=== PATIENT | male | born 1985 | race Caucasian/White ===

== ENCOUNTER 2024-05-21 21:38 | Emergency (ER) | payer OTHER ==
[~2024-05-21] VITALS: Ht 175.3 cm; Wt 100.7 kg
[2024-05-21 21:43] VITALS: O2SAT 96
[2024-05-21] MEDS ORDERED: LIDOCAINE VISCUS 2% 15 ML UDC ONE (21:56)
[2024-05-21] MEDS: LIDOCAINE VISCUS 2% 15 ML UDC MM ONE (22:05)
[2024-05-21] MEDS ORDERED: DEXAMETHASONE SOD PHOSPHATE 4 MG INJ ONE (22:44)
[2024-05-21] MEDS ORDERED: DEXAMETHASONE SOD PHOSPHATE 10 MG INJ ONE (22:45)
[2024-05-21] MEDS ORDERED: OXYCODONE/APAP 5-325 MG TABLET ONE ×2 (22:45→22:50)
[2024-05-21] MEDS ORDERED: OXYC-133 PO (22:45)
[2024-05-21] MEDS: OXYCODONE/APAP 5-325 MG TABLET PO ONE ×2 (22:50)
[2024-05-21] MEDS: DEXAMETHASONE SOD PHOSPHATE 4 MG INJ IM ONE (22:50)
[2024-05-21] MEDS ORDERED: viscous lidocaine TOP (23:08)
== END 2024-05-21 23:10 | disposition home or self-care (01) ==
LOC: ER 21:43
DX: J02.0 Streptococcal pharyngitis (principal); F17.210 Nicotine dependence, cigarettes, uncomplicated; Z87.442 Personal history of urinary calculi; Z20.822 Contact with and (suspected) exposure to COVID-19; Z79.891 Long term (current) use of opiate analgesic
CPT/HCPCS: 99284; 99406; 87426; 86403; 87070; 96372; J1100 ×2; A4606; A4663

== ENCOUNTER 2024-10-18 17:08 | Emergency (ER) | payer MEDICAID ==
[~2024-10-18] VITALS: Ht 175.3 cm; Wt 99.8 kg
[~2024-10-18 17:08] MED LIST: HYDR-3980 PO; ONDA4TAB11 PO; OXYC-133 PO; viscous lidocaine TOP
[2024-10-18] MEDS: IV NORMAL SALINE 1000 ML BAG IV ONE (19:16)
[2024-10-18] MEDS: MORPHINE SULFATE 4 MG/1 ML DISP.SYRIN IV ONE (19:17)
[2024-10-18] MEDS: MIDAZOLAM HCL 2 MG/2 ML VIAL IV ONE (19:17)
[2024-10-18] MEDS: METOCLOPRAMIDE HCL 10 MG/2 ML VIAL IV ONE (19:17)
[2024-10-18 19:34] LABS: BASOPHILS # (AUTO) 0.1 K/UL (0.0-0.2); BASOPHILS % (AUTO) 0.5 % (0.0-2.0); EOSINOPHILS # (AUTO) 0.3 K/uL (0.0-0.7); EOSINOPHILS % (AUTO) 1.9 % (0.0-7.0); HEMATOCRIT 41.8 % (36.7-47.1); HEMOGLOBIN 14.4 g/dL (12.5-16.3); LYMPHOCYTES # (AUTO) 3.2 K/uL (0.8-4.8); LYMPHOCYTES % (AUTO) 20.5 % (20.5-51.5); MEAN CORPUSCULAR HEMOGLOBIN 29.2 uug (23.8-33.4); MEAN CORPUSCULAR HGB CONC 35 g/dL (32.5-36.3); MEAN CORPUSCULAR VOLUME 84.9 fL (73.0-96.2); MONOCYTES # (AUTO) 1.2 K/uL (0.1-1.30); MONOCYTES % (AUTO) 7.7 % (0.0-11.0); NEUTROPHILS # (AUTO) 10.8 K/uL (1.8-8.9); NEUTROPHILS % (AUTO) 69.4 % (38.5-71.5); PLATELET COUNT (AUTO) 218 K/uL (152-348); RED BLOOD CELL COUNT(AUTO) 4.92 MIL/uL (4.06-5.63); RED CELL DISTRIBUTION WIDTH 13.6 % (12.1-16.2); WHITE BLOOD COUNT (AUTO) 15.6 K/uL (3.6-10.2)
[2024-10-18 19:40] LABS: DIFFERENTIAL COMMENT 1
[2024-10-18 19:45] LABS: CALCIUM 9.2 mg/dL (8.5-10.1); CREATININE 0.9 mg/dL (0.6-1.3); POTASSIUM 3.5 mmol/L (3.5-5.1)
[2024-10-18 20:02] LABS: ALBUMIN 3.8 g/dL (3.4-5.0); BILIRUBIN,DIRECT 0.2 mg/dL (0.0-0.2); BILIRUBIN,TOTAL 0.6 mg/dL (0.2-1.0)
[2024-10-18] MEDS ORDERED: IOHEXOL 300MG/ML 100 ML INFUS..BTL ONE (20:07)
[2024-10-18] MEDS ORDERED: SWABABLE VALVE TRANSFER SET EA MC ONE (20:07)
[2024-10-18] MEDS ORDERED: IV NORMAL SALINE 250 ML IV ONE (20:07)
[2024-10-18 20:33] LABS: EOSINOPHILS % (MANUAL) 1 % (0-8); LYMPHOCYTES % (MANUAL) 19 % (20-40); MONOCYTES % (MANUAL) 8 % (2-10); NEUTROPHILS % (MANUAL) 72 % (42-75); PLATELET ESTIMATE ADEQUATE
[2024-10-18 20:34] LABS: ANISOCYTOSIS 1+; TEAR DROP CELLS 1+
[2024-10-18] MEDS: CEFTRIAXONE 2 G in IV DEXTROSE 5% 100 ML IV ONE (20:40)
[2024-10-18] MEDS: KETOROLAC TROMETHAMINE 30 MG INJ IVP ONE (21:15)
[2024-10-18] MEDS: DEXAMETHASONE SOD PHOSPHATE 4 MG INJ IV ONE (21:15)
[2024-10-18 21:47] VITALS: TEMP 100.3
[2024-10-18] MEDS: ACETAMINOPHEN 500 MG TABLET PO ONE (21:47)
[2024-10-18] MEDS ORDERED: AMOX-430 PO (21:58)
[2024-10-18] MEDS ORDERED: HYDR-3980 PO (21:58)
[2024-10-18] MEDS ORDERED: ONDA4TAB5 PO (22:07)
[2024-10-18] MEDS ORDERED: TRAM50TA2 PO (22:07)
[2024-10-18 22:10] VITALS: BP 140/96; O2SAT 99
== END 2024-10-18 22:10 | disposition home or self-care (01) ==
LOC: ER 17:08
DX: J36 Peritonsillar abscess (principal); K76.0 Fatty (change of) liver, not elsewhere classified; R51.9 Headache, unspecified; F17.200 Nicotine dependence, unspecified, uncomplicated; Z79.899 Other long term (current) drug therapy
CPT/HCPCS: 99285; 70450; 96375; 96365; 71045; 96361; 80076; 80048; 85025; 84145; 85730; 87040; 36415; 70491; 93005; 83605; 85007; J0696; J2765; J2250; Q9967; J2270; J7040; 70030-TC; A4606; A4663